=== PATIENT | female | born 1975 | race American Indian/Alaskan Native ===

== ENCOUNTER 2018-05-27 17:51 | Emergency (ER) | payer OTHER ==
--- NOTE | 2018-05-27 18:16 | Emergency Department Report ---
Chief Complaint: High BP Stated Complaint: BLOOD PRESSURE Time Seen by Provider: 05/27/18 18:11 - HPI History of Present Illness: pt states she has not had her BP medication in 3-4 weeks feels a frontal GRIMALDO feels like a pressure denies any other sx pt currently takes lisinopril hctz BP is 167/100 in triage recheck BP is 172/113 MSE screening note: Focused history and physical exam performed. will give pt her prescribed bp medication ED Disposition for MSE Condition: Stable
[2018-05-27] MEDS ORDERED: ZESTRIL PO ONE (18:19)
[2018-05-27] MEDS ORDERED: HCTZ PO ONE (18:19)
[2018-05-27 19:42] VITALS: BP 165/105
--- NOTE | 2018-05-27 20:45 | Emergency Department Report ---
ED General Adult HPI - General Chief complaint: High BP Stated complaint: BLOOD PRESSURE Time Seen by Provider: 05/27/18 18:11 Source: patient Mode of arrival: Ambulatory Limitations: No Limitations - History of Present Illness Initial comments: 42-year-old [place] female, presently history of hypertension amount of her medication and was unable to get a refill from her primary care provider so she came to the emergency department for a refill of her Zestoretic. States she had a mild episode of feeling lightheadedness blood pressure was elevated so she wanted us to reevaluate or at the emergency department. However, she reports no chest pain, palpitations,, fever, chills, hemoptysis, hematemesis, shortness of breath. Currently she feels well, just needs medication refill Location: head Radiation: non-radiation Severity scale (0 -10): 0 Improves with: none Worsens with: none - Related Data Previous Rx's Medication Instructions Recorded Last Taken Type Lisinopril/Hydrochlorothiazide 1 each PO QDAY #30 tablet 11/13/14 Unknown Rx [Zestoretic 20-12.5 mg] ALPRAZolam [Xanax TAB] 0.25 mg PO BID PRN #10 tab 07/31/15 Unknown Rx Cyclobenzaprine HCl [Flexeril 5 MG 5 mg PO TID #20 tab 11/19/15 Unknown Rx TAB] Ibuprofen [Motrin] 800 mg PO Q8HR PRN #15 tablet 11/19/15 Unknown Rx Lisinopril/Hydrochlorothiazide 1 each PO DAILY #30 tablet 05/27/18 Unknown Rx [Zestoretic 20-12.5 mg] Allergies Allergy/AdvReac Type Severity Reaction Status Date / Time No Known Allergies Allergy Verified 05/09/15 12:11 ED Review of Systems ROS: Stated complaint: BLOOD PRESSURE Other details as noted in HPI Constitutional: denies: chills, fever Eyes: denies: eye pain, eye discharge, vision change ENT: denies: ear pain, throat pain Respiratory: denies: cough, shortness of breath, wheezing Cardiovascular: denies: chest pain, palpitations Endocrine: no symptoms reported Gastrointestinal: denies: abdominal pain, nausea, diarrhea Genitourinary: denies: urgency, dysuria, discharge Musculoskeletal: denies: back pain, joint swelling, arthralgia Skin: denies: rash, lesions Neurological: denies: headache, weakness, paresthesias Psychiatric: denies: anxiety, depression Hematological/Lymphatic: denies: easy bleeding, easy bruising ED Past Medical Hx - Past Medical History Hx Hypertension: Yes (ran out of medication) Hx CVA: No Hx Heart Attack/AMI: No Hx Congestive Heart Failure: No Hx Diabetes: No Hx Deep Vein Thrombosis: No Hx Pulmonary Embolism: No Hx GERD: Yes Hx Liver Disease: No Hx Renal Disease: No Hx Sickle Cell Disease: No Hx Arthritis: No Hx Headaches / Migraines: No Hx Seizures: No Hx Kidney Stones: No Hx Psychiatric Treatment: Yes (depression, anxiety) Hx Asthma: No Hx COPD: No Hx Tuberculosis: No Hx Dementia: No Hx HIV: No Additional medical history: chronic back pain. TACHYCARDIA. - Surgical History Hx Coronary Stent: No Hx Open Heart Surgery: No Hx Pacemaker: No Hx Internal Defibrillator: No Hx Cholecystectomy: Yes Hx Appendectomy: No Hx Breast Surgery: No Additional Surgical History: tubal ligation - Social History Smoking Status: Never Smoker Substance Use Type: None - Medications Home Medications: Home Medications Medication Instructions Recorded Confirmed Last Taken Type Lisinopril/Hydrochlorothiazide 1 each PO QDAY #30 tablet 11/13/15 07/31/15 Unknown Rx [Zestoretic 20-12.5 mg] ALPRAZolam [Xanax TAB] 0.25 mg PO BID PRN #10 tab 07/31/15 Unknown Rx Cyclobenzaprine HCl [Flexeril 5 MG 5 mg PO TID #20 tab 11/19/15 Unknown Rx TAB] Ibuprofen [Motrin] 800 mg PO Q8HR PRN #15 tablet 11/19/15 Unknown Rx Lisinopril/Hydrochlorothiazide 1 each PO DAILY #30 tablet 05/27/18 Unknown Rx [Zestoretic 20-12.5 mg] ED Physical Exam - General Limitations: No Limitations General appearance: alert, in no apparent distress - Head Head exam: Present: atraumatic, normocephalic - Eye Eye exam: Present: normal appearance - ENT ENT exam: Present: mucous membranes moist - Neck Neck exam: Present: normal inspection - Respiratory Respiratory exam: Present: normal lung sounds bilaterally. Absent: respiratory distress - Cardiovascular Cardiovascular Exam: Present: regular rate, normal rhythm. Absent: systolic murmur, diastolic murmur, rubs, gallop - GI/Abdominal GI/Abdominal exam: Present: soft, normal bowel sounds - Extremities Exam Extremities exam: Present: normal inspection - Back Exam Back exam: Present: normal inspection - Neurological Exam Neurological exam: Present: alert, oriented X3 - Psychiatric Psychiatric exam: Present: normal affect, normal mood - Skin Skin exam: Present: warm, dry, intact, normal color. Absent: rash ED Course Vital Signs 05/27/18 05/27/18 05/27/18 18:11 19:15 19:41 Temperature 98.3 F 98.5 F Pulse Rate 94 H 94 H 86 Respiratory 18 17 Rate Blood Pressure 167/100 167/100 Blood Pressure 165/105 [Right] O2 Sat by Pulse 94 98 Oximetry ED Medical Decision Making - Medical Decision Making Discussed with her the need of medication compliance and appropriate follow-up with her primary care provider. She states she is now upset with her current PCP in the want to look for a normal because they did not give her temporary refill on to her appointment. Currently, she is asymptomatic, feels well, speaking in full sentences with no no chest pain or shortness of breath noted. Critical care attestation.: If time is entered above; I have spent that time in minutes in the direct care of this critically ill patient, excluding procedure time. ED Disposition Clinical Impression: Encounter for medication refill Disposition: DC-01 TO HOME OR SELFCARE Is pt being admited?: No Does the pt Need Aspirin: No Condition: Stable Instructions: Hypertension (ED) Prescriptions: Lisinopril/Hydrochlorothiazide [Zestoretic 20-12.5 mg] 1 each PO DAILY #30 tablet Referrals: JASMYNE WRIGHT MD [Primary Care Provider] - 3-5 Days
== END 2018-05-27 20:40 | disposition home or self-care (01) ==
LOC: ED 17:51
DX: I10 Essential (primary) hypertension (principal); Z76.0 Encounter for issue of repeat prescription; K21.9 Gastro-esophageal reflux disease without esophagitis; M54.9 Dorsalgia, unspecified; G89.29 Other chronic pain; Z90.49 Acquired absence of other specified parts of digestive tract; Z98.51 Tubal ligation status
CPT/HCPCS: 99282